=== PATIENT | female | born 1955 | race Caucasian/White ===

== ENCOUNTER → 2024-01-30 08:10 | Outpatient (REF) | payer BC, SELFPAY | LOC: DHCBS HW 08:10 | PROVIDERS: ATTENDING PHYSICIAN Nurse Practitioner; FAMILY PHYSICIAN Nurse Practitioner | DX: R06.09 Other forms of dyspnea (principal) | CPT/HCPCS: 93306 ==

== ENCOUNTER → 2024-09-30 06:29 | Outpatient (REF) | payer BC, SELFPAY | LOC: HWWDC 06:29 | DX: Z12.31 Encounter for screening mammogram for malignant neoplasm of breast (principal) | CPT/HCPCS: 77063; 77067 ==

== ENCOUNTER 2024-12-08 06:39 | Day surgery (SDC) | payer BC, SELFPAY ==
[2024-12-08 07:32] LABS: Glucose - Point of Care 139 mg/dl (70-99)
== END 2024-12-08 09:35 | disposition home or self-care (01) ==
LOC: GI 06:39
PROVIDERS: ATTENDING PHYSICIAN Internal Medicine Gastroenterology
DX: Z12.11 Encounter for screening for malignant neoplasm of colon (principal); K57.30 Diverticulosis of large intestine without perforation or abscess without bleeding; K64.0 First degree hemorrhoids; Z86.0100 Personal history of colon polyps, unspecified
CPT/HCPCS: 45380; 88305; 82962

== ENCOUNTER → 2025-04-24 07:37 | Outpatient (REF) | payer BC, SELFPAY | LOC: WOUND 07:37 | PROVIDERS: ATTENDING PHYSICIAN Surgery | DX: L97.211 Non-pressure chronic ulcer of right calf limited to breakdown of skin (principal); I87.2 Venous insufficiency (chronic) (peripheral); I73.9 Peripheral vascular disease, unspecified; I89.0 Lymphedema, not elsewhere classified; E11.9 Type 2 diabetes mellitus without complications; E11.65 Type 2 diabetes mellitus with hyperglycemia; E66.9 Obesity, unspecified; E66.01 Morbid (severe) obesity due to excess calories | CPT/HCPCS: 97597; 99204 ==

== ENCOUNTER → 2025-04-28 13:48 | Outpatient (REF) | payer BC, SELFPAY | LOC: WOUND 13:48 | PROVIDERS: ATTENDING PHYSICIAN Surgery | DX: L97.211 Non-pressure chronic ulcer of right calf limited to breakdown of skin (principal); I87.2 Venous insufficiency (chronic) (peripheral); I73.9 Peripheral vascular disease, unspecified; I89.0 Lymphedema, not elsewhere classified; E11.65 Type 2 diabetes mellitus with hyperglycemia; E66.9 Obesity, unspecified; E66.01 Morbid (severe) obesity due to excess calories | CPT/HCPCS: 99213 ==

== ENCOUNTER → 2025-05-07 13:49 | Outpatient (REF) | payer BC, SELFPAY | LOC: RAD 13:49 | PROVIDERS: ATTENDING PHYSICIAN Surgery | DX: L97.211 Non-pressure chronic ulcer of right calf limited to breakdown of skin (principal); I87.2 Venous insufficiency (chronic) (peripheral); I89.0 Lymphedema, not elsewhere classified | CPT/HCPCS: 93922; 93970 ==

== ENCOUNTER → 2025-05-19 08:45 | Outpatient (REF) | payer BC, SELFPAY | LOC: WOUND 08:45 | PROVIDERS: ATTENDING PHYSICIAN Surgery | DX: L97.211 Non-pressure chronic ulcer of right calf limited to breakdown of skin (principal); I87.2 Venous insufficiency (chronic) (peripheral); I73.9 Peripheral vascular disease, unspecified; I89.0 Lymphedema, not elsewhere classified; E11.65 Type 2 diabetes mellitus with hyperglycemia; E66.9 Obesity, unspecified; E66.01 Morbid (severe) obesity due to excess calories | CPT/HCPCS: 99212 ==